=== PATIENT | male | born 1955 | race Caucasian/White ===

== ENCOUNTER 2017-11-04 02:07 | Inpatient (IN) | payer OTHER ==
[2017-11-04] MEDS ORDERED: LORAZEPAM 2 MG/ML SOL IV ONE (02:18)
[2017-11-04] MEDS: SODIUM CHLORIDE 0.9% 1000ML 1,000 ML IV SCH ×6 (02:30→23:46)
[2017-11-04] MEDS ORDERED: LORAZEPAM 2 MG/ML SOL ONE (02:32)
[2017-11-04 02:58] LABS: BASOPHILS % (AUTO) 3 % (0-3); EOSINOPHILS % (AUTO) 0 % (0-9); HEMATOCRIT 51 % (39-53); LYMPHOCYTES % (AUTO) 14.8 % (10-50); MEAN CORPUSCULAR HEMOGLOBIN 28.6 pg (27.0-32.0); MEAN CORPUSCULAR HGB CONC 35.5 gm/dl (32.0-36.0); MONOCYTES % (AUTO) 3.7 % (0-12); NEUTROPHILS % (AUTO) 78.5 % (37-80)
[2017-11-04 03:01] LABS: ALBUMIN 3.5 gm/dl (3.4-5.0); ALKALINE PHOSPHATASE 111 IU/L (46-116); ALT 30 IU/L (14-63); AST 24 IU/L (15-37); BILIRUBIN,TOTAL 0.4 mg/dl (0.2-1.0); BLOOD UREA NITROGEN 17 mg/dl (7-18); CALCIUM 8.9 mg/dl (8.5-10.1); CARBON DIOXIDE 21.5 mEq/L (21-32); CHLORIDE 96 mMol/L (98-107); CREATININE 1.45 mg/dl (0.80-1.30); GLOM FILT RATE 50 mL/min (>60); SODIUM 131 mMol/L (136-145); TOTAL PROTEIN 7.3 gm/dl (6.4-8.2); TROP I < 0.017 ng/ml (0.000-0.056)
[2017-11-04 03:02] LABS: GLUCOSE 563 mg/dl (74-106)
[2017-11-04 03:06] LABS: MEAN CORPUSCULAR VOLUME 81 fL (80-100)
[2017-11-04 03:07] LABS: HEMOGLOBIN 18.2 gm/dl (13.5-17.7)
[2017-11-04 03:08] LABS: ESTIMATED AVE GLU 355 mg/dl (91-125); HEMOGLOBIN A1C > 14.0 % (4.8-6.0)
[2017-11-04 03:14] LABS: APPEARANCE,URINE Clear; BILIRUBIN,URINE NEGATIVE (NEGATIVE); COLOR,URINE Yellow; GLUCOSE, URINE (UA) 2+ (NEGATIVE); KETONES,URINE TRACE (NEGATIVE); LEUKOCYTE ESTERASE ,URINE NEGATIVE (NEGATIVE); NITRATE,URINE NEGATIVE (NEGATIVE); OCCULT BLOOD,URINE TRACE INTACT (NEG-TRACE); UROBILINOGEN,URINE 0.2 (0.2-1.0 EU)
[2017-11-04 03:27] LABS: BACTERIA 1+ (< 1+); CRYSTALS NEGATIVE (0-3 AVE/HPF); EPITHELIAL CELLS 0-2 (SQUAMOUS); RBC,URINE 0-2 (0-3AV/HPF); WBC,URINE 0-2 (0-5AV/HPF)
[2017-11-04] MEDS ORDERED: SODIUM CHLORIDE 0.9% 1000ML 1,000 ML IV SCH (04:45)
[2017-11-04] MEDS ORDERED: INSULIN HUMAN REGULAR 100 U/ML SOL SC ONE (05:00)
[2017-11-04 09:31] LABS: BASOPHILS % (AUTO) 1 % (0-3); EOSINOPHILS % (AUTO) 0 % (0-9); HEMATOCRIT 48 % (39-53); LYMPHOCYTES % (AUTO) 19.1 % (10-50); MEAN CORPUSCULAR HEMOGLOBIN 28.8 pg (27.0-32.0); MEAN CORPUSCULAR HGB CONC 35.6 gm/dl (32.0-36.0); MONOCYTES % (AUTO) 4.3 % (0-12); NEUTROPHILS % (AUTO) 75.4 % (37-80)
[2017-11-04 09:38] LABS: MEAN CORPUSCULAR VOLUME 81 fL (80-100)
[2017-11-04 09:40] LABS: CALCIUM 8.1 mg/dl (8.5-10.1); CARBON DIOXIDE 25.7 mEq/L (21-32); CREATININE 1.01 mg/dl (0.80-1.30); POTASSIUM 3.8 mMol/L (3.5-5.1)
[2017-11-04 09:56] LABS: AMPHETAMINES POSITIVE (NEGATIVE); BARBITUATES NEGATIVE (NEGATIVE); BENZODIAZEPINES NEGATIVE (NEGATIVE); CANNABINOL(THC) NEGATIVE (NEGATIVE); COCAINE(COC) NEGATIVE (NEGATIVE); METHADONE NEGATIVE (NEGATIVE); METHAMPHETAMINES POSITIVE (NEGATIVE); OPIATES(OP13) NEGATIVE (NEGATIVE); OXYCODONE(OXY) NEGATIVE (NEGATIVE); PROPOXYPHENE(PPX) NEGATIVE (NEGATIVE); TRICYCLIC ANTIDEPRESSANTS NEGATIVE (NEGATIVE)
[2017-11-04] MEDS: NOVOLOG FLEXPEN SC SCH ×4 (09:58→21:21)
[2017-11-04] MEDS: INSULIN GLARGINE, RECOMBINAN 100 U/ML SOL SC SCH (09:59)
[2017-11-04] MEDS ORDERED: SODIUM CHLORIDE 0.9% 1000ML 1,000 ML IV ONE (11:10)
[2017-11-05] MEDS: SODIUM CHLORIDE 0.9% 1000ML 1,000 ML IV SCH ×3 (07:48→23:08)
[2017-11-05] MEDS: ACETAMINOPHEN 325 MG PO PRN ×2 (08:04→17:53)
[2017-11-05] MEDS: INSULIN GLARGINE, RECOMBINAN 100 U/ML SOL SC SCH (08:05)
[2017-11-05] MEDS: NOVOLOG FLEXPEN SC SCH ×4 (08:05→21:46)
[2017-11-05 08:09] LABS: CALCIUM 7.8 mg/dl (8.5-10.1); CARBON DIOXIDE 23.6 mEq/L (21-32); CREATININE 0.84 mg/dl (0.80-1.30); POTASSIUM 3.8 mMol/L (3.5-5.1)
[2017-11-05 08:17] LABS: BASOPHILS % (AUTO) 1 % (0-3); EOSINOPHILS % (AUTO) 1 % (0-9); HEMATOCRIT 44 % (39-53); HEMOGLOBIN 15.5 gm/dl (13.5-17.7); LYMPHOCYTES % (AUTO) 25.4 % (10-50); MEAN CORPUSCULAR HEMOGLOBIN 29.1 pg (27.0-32.0); MEAN CORPUSCULAR HGB CONC 35.6 gm/dl (32.0-36.0); MEAN CORPUSCULAR VOLUME 82 fL (80-100); MONOCYTES % (AUTO) 5.4 % (0-12); NEUTROPHILS % (AUTO) 66.9 % (37-80)
[2017-11-05 16:07] VITALS: RESP 16
[2017-11-05 23:35] VITALS: O2SAT 96
[2017-11-06 07:32] LABS: ALBUMIN 2.9 gm/dl (3.4-5.0); BILIRUBIN,TOTAL 0.4 mg/dl (0.2-1.0); CALCIUM 8.3 mg/dl (8.5-10.1); CARBON DIOXIDE 23.7 mEq/L (21-32); CREATININE 0.84 mg/dl (0.80-1.30); POTASSIUM 3.8 mMol/L (3.5-5.1); TOTAL PROTEIN 6.2 gm/dl (6.4-8.2)
[2017-11-06 08:22] VITALS: BP 176/95; PULSE 62; TEMP 97.7
[2017-11-06] MEDS: NOVOLOG FLEXPEN SC SCH ×2 (08:57→12:25)
[2017-11-06] MEDS: INSULIN GLARGINE, RECOMBINAN 100 U/ML SOL SC SCH (08:57)
[2017-11-06 09:49] LABS: BASOPHILS % (AUTO) 0 % (0-3); EOSINOPHILS % (AUTO) 2 % (0-9); HEMATOCRIT 48 % (39-53); MEAN CORPUSCULAR HEMOGLOBIN 29.3 pg (27.0-32.0); MEAN CORPUSCULAR HGB CONC 33.3 gm/dl (32.0-36.0); MEAN CORPUSCULAR VOLUME 88 fL (80-100); MONOCYTES % (AUTO) 4.9 % (0-12)
[2017-11-06] MEDS: SODIUM CHLORIDE 0.9% 1000ML 1,000 ML IV SCH (09:55)
[2017-11-06] MEDS: ACETAMINOPHEN 325 MG PO PRN (12:25)
== END 2017-11-06 12:35 | disposition home or self-care (01) | DRG 420 ==
LOC: ED 02:07 → ACUTE CARE 04:14
PROVIDERS: ADMIT Family Medicine; ATTEND Family Medicine
DX: E11.65 Type 2 diabetes mellitus with hyperglycemia (principal); R56.9 Unspecified convulsions; R40.2362 Coma scale, best motor response, obeys commands, at arrival to emergency department; R40.2142 Coma scale, eyes open, spontaneous, at arrival to emergency department; R40.2252 Coma scale, best verbal response, oriented, at arrival to emergency department; F15.90 Other stimulant use, unspecified, uncomplicated
CPT/HCPCS: 36415; 70450; 80048; 80053; 80305; 81001; 82962; 83036; 84484; 85025; 93005; 96365; 96374; 99222; 99238; 99284; J1815; J1817; J2060